=== PATIENT | male | born 1995 | race Hispanic/Latino ===

== ENCOUNTER 2024-07-12 20:08 | Emergency (ER) | payer OTHER ==
[~2024-07-12] VITALS: Ht 165.1 cm; Wt 67.1 kg
[2024-07-12 20:15] VITALS: TEMP 98.4
[2024-07-12] MEDS ORDERED: ONDANSETRON HCL INJ 2MG/ML 2ML 2 MG/ML VIAL ONE (21:05)
[2024-07-12] MEDS: SODIUM CHLORIDE 0.9% 1000ML 1,000 ML IV ONE (21:11)
[2024-07-12] MEDS: ONDANSETRON HCL INJ 2MG/ML 2ML 2 MG/ML VIAL IV STA (21:11)
[2024-07-12] MEDS: MECLIZINE HCL 12.5 MG TAB PO ONE (21:13)
[2024-07-12 21:21] LABS: BASOPHILS # (AUTO) 0.1 (0.0-0.1); BASOPHILS % 0.3 % (0.0-1.0); EOSINOPHILS % 0.2 % (0.0-6.0); HEMATOCRIT 51.5 % (38.2-49.6); HEMOGLOBIN 16.5 g/dL (14.0-18.0); LYMPHOCYTES # (AUTO) 1.6 (1.0-3.2); LYMPHOCYTES % 8.7 % (18.0-39.1); MEAN CORPUSCULAR HEMOGLOBIN 31.7 pg (28-32); MONOCYTES % 5.5 % (4.4-11.3); NEUTROPHILS # (AUTO) 15.6 (2.1-6.9); NEUTROPHILS % 84.7 % (38.7-80.0); PLATELET COUNT 301 x10e3/uL (140-360); RED CELL DISTRIBUTION WIDTH 12.4 % (11.7-14.4); WHITE BLOOD COUNT 18.44 x10e3/uL (4.8-10.8)
[2024-07-12 21:37] LABS: ALBUMIN 4.6 g/dL (3.5-5.0); ALBUMIN/GLOBULIN RATIO 1.4 (0.8-2.0); ANION GAP 17.3 mmol/L (8-16); BILIRUBIN,TOTAL 0.6 mg/dL (0.2-1.2); CREATININE, SERUM 0.87 mg/dL (0.72-1.25); POTASSIUM 4.3 mmol/L (3.5-5.1)
[2024-07-12 21:43] LABS: TROPONIN I 0.005 ng/mL (0-0.300)
[2024-07-12 22:56] LABS: CLARITY,URINE CLEAR (CLEAR); COLOR,URINE YELLOW (YELLOW); LEUKOCYTE ESTERASE ,URINE NEGATIVE (NEGATIVE); NITRITE,URINE NEGATIVE (NEGATIVE); PH,URINE 7 (5 - 7); PROTEIN,URINE DIPSTICK NEGATIVE (NEGATIVE)
[2024-07-12 22:57] LABS: AMPHETAMINES SCREEN,URINE NEGATIVE (NEGATIVE); BENZODIAZEPINES SCREEN,URINE NEGATIVE (NEGATIVE); BILIRUBIN,URINE NEGATIVE (NEGATIVE); CANNABINOIDS SCREEN,URINE NEGATIVE (NEGATIVE); COCAINE SCREEN,URINE NEGATIVE (NEGATIVE); GLUCOSE, URINE NEGATIVE (NEGATIVE); KETONES,URINE NEGATIVE (NEGATIVE); METHADONE SCREEN, URINE NEGATIVE (NEGATIVE); OPIATES SCREEN,URINE NEGATIVE (NEGATIVE); PHENCYCLIDINE SCREEN,URINE NEGATIVE (NEGATIVE); URINE UROBILINOGEN 0.2 mg/dL (0.2 - 1)
[2024-07-12 23:00] VITALS: PULSE 90; RESP 18
[2024-07-12 23:08] LABS: RBC,URINE 0-5 /HPF (0-5); WBC,URINE (MAN) 0-5 /HPF (0-5)
[2024-07-12 23:09] LABS: BACTERIA,URINE FEW /HPF; EPITHELIAL CELLS,URINE FEW /LPF
[2024-07-12] MEDS ORDERED: PENICILLIN V P500 MG PO (23:14)
[2024-07-12 23:25] VITALS: BP 127/84; O2SAT 99
== END 2024-07-12 23:27 | disposition home or self-care (01) ==
LOC: ER 20:41
DX: R42 Dizziness and giddiness (principal); K04.7 Periapical abscess without sinus; R51.9 Headache, unspecified; R11.0 Nausea
CPT/HCPCS: 36415; 70450; 71045; 80053; 80307; 81001; 82550; 84484; 85025; 99284; J2405; J7030; J8597